=== PATIENT | female | born 1990 | race Caucasian/White ===

== ENCOUNTER 2024-12-06 20:23 | Emergency (ER) | payer SELFPAY ==
[2024-12-06 20:28] VITALS: BP 131/84; PULSE 100; RESP 18; TEMP 36.8; O2SAT 95; BMI 37.7
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
--- NOTE | 2024-12-06 21:01 | ED.SKABFB ---
HPI - Skin/Abscess/Foreign Bdy General Chief complaint: Skin/Abscess/Foreign Body Stated complaint: Abscess on tailbone Time Seen by Provider: 12/06/24 20:37 History of Present Illness HPI narrative: This 34-year-old female comes in with a painful abscess over her tailbone. She went into urgent care elsewhere and was sent to the ER and was told that there were no beds available so she after weight. She came here instead. She has not had any previous symptoms like this. She arrives here with normal vital signs. Related Data Allergies Allergy/AdvReac Type Severity Reaction Status Date / Time No Known Drug Allergies Allergy Verified 12/06/24 20:32 Review of Systems Status of ROS: Reports: 10 or more systems reviewed and unremarkable except as noted in History and below Narrative: Constitutional: No fevers, no weight gain or loss. Eyes: No discharge. No vision changes. HENT: No congestion, no sore throat, no ear pain. Cardiovascular: No chest pain, no palpitations. Respiratory: No shortness of breath, no wheezes, no cough. Gastrointestinal: No abdominal pain, no vomiting, no diarrhea. Genitourinary: No dysuria, no hematuria. Musculoskeletal: Normal range of motion. Skin: No rashes, no pruritis. Neurological: No dizziness, weakness, sensory change, speech change. Endo/Heme/Allergies: No bruising or bleeding. No polydipsia. Pysch: no suicidality, no anxiety, no insomnia. All other systems reviewed and are negative. Exam Narrative: Exam Narrative: Constitutional: Well-developed, well-nourished, no acute distress. HEENT: Normocephalic, atraumatic. Neck: Normal range of motion. Nontender. Supple. Heart: Intact distal pulses. Lungs: No chest discomfort. No wheezes, rhonchi, or rales. Abdomen: Nontender. Back: Normal range of motion. Area of erythema and swelling overlying the tailbone typical of a pilonidal cyst. Extremities: Normal range of motion. No injury. Skin: Intact. No rash. Warm. No erythema or pallor. Neurologic: No altered sensation. No weakness. Alert and oriented. Psychiatric: No suicidality. No anxiety or depression. No insomnia. Nursing notes and vitals signs are reviewed. Const: Vital Signs, click to edit/add: Vital Signs - 24 hr 12/06/24 20:28 Temperature 98.3 F Pulse Rate [Left P ulse Oximeter] 100 Respiratory Rate 18 Blood Pressure [Ri ght Upper Arm] 131/84 Pulse Oximetry 95 Oxygen Delivery Me thod Room Air Course Vital Signs Vital signs: Initial Vital Signs Temperature 98.3 F 12/06/24 20:28 Temperature Source Temporal Artery Scan 12/06/24 20:28 Pulse Rate 100 12/06/24 20:28 Pulse Rhythm Regular 12/06/24 20:28 Respiratory Rate 18 12/06/24 20:28 Blood Pressure 131/84 12/06/24 20:28 Blood Pressure Mean 99 12/06/24 20:28 Blood Pressure Position Standing 12/06/24 20:28 Pulse Oximetry 95 12/06/24 20:28 Oxygen Delivery Method Room Air 12/06/24 20:28 Vital Signs Temperature 98.3 F 12/06/24 20:28 Pulse Rate 100 12/06/24 20:28 Respiratory Rate 18 12/06/24 20:28 Blood Pressure 131/84 12/06/24 20:28 Pulse Oximetry 95 12/06/24 20:28 Oxygen Delivery Method Room Air 12/06/24 20:28 Temperature 98.3 F 12/06/24 20:28 Pulse Rate 100 12/06/24 20:28 Respiratory Rate 18 12/06/24 20:28 Blood Pressure 131/84 12/06/24 20:28 Pulse Oximetry 95 12/06/24 20:28 Oxygen Delivery Method Room Air 12/06/24 20:28 MDM - Skin/Abscess/Foreign Bdy MDM Narrative Medical decision making narrative: This patient has a pilonidal cyst that would benefit from incision and drainage. After cleansing the area with alcohol I did anesthetize superficially with 1% lidocaine. There was a small area where the abscess was almost ready to drain. I did use a 15. Blade to widen this wound to about a cm. There was fair amount of fluid expressed from the cyst amounting to approximately 6-8 mL of fluid. The wound was left open and the patient received prescriptions for Augmentin and Toradol. Discharge Plan Discharge Clinical Impression: Infected pilonidal cyst Patient Disposition: Home, Self-Care Condition: Improved Additional Instructions: Take medication as directed. Further drainage from the wound is beneficial if it occurs. Follow up with MD return if worsening. Follow Up/Referrals: Provider,Not a Local [Primary Care Provider] - Stand Alone Forms: [employer] Info Instructions
[2024-12-06] MEDS: AMOXICILLIN/CLAVULANATE 875 mg/125 mg TABLET PO (21:10)
== END 2024-12-06 21:13 | disposition home or self-care (01) ==
PROVIDERS: Emergency Provider Emergency Medicine Emergency Medical Services
DX: L05.01 Pilonidal cyst with abscess (principal)
CPT/HCPCS: 10080; 99283; 99284